=== PATIENT | male | born 1955 | race Caucasian/White ===

== ENCOUNTER 2019-09-24 09:43 | Inpatient (IN) | payer OTHER ==
[~2019-09-24] VITALS: Ht 185.4 cm; Wt 150.6 kg
[2019-09-24 09:49] VITALS: BP 121/79
[2019-09-24] MEDS ORDERED: TOPROL XL25 MG PO (09:50)
[2019-09-24] MEDS ORDERED: CIALIS2.5 MG PO (09:51)
[2019-09-24 10:16] LABS: BASO # 0.1 10*3/uL (0.0-0.1); BASO % 0.6 % (0.0-1.0); EOS # 0.4 10*3/uL (0.0-0.4); EOS % 4.6 % (1.0-4.0); HEMATOCRIT 51.3 % (42.0-52.0); HEMOGLOBIN 16.9 g/dl (14.0-18.0); LYMPH # 1.8 10*3/uL (1.3-4.4); LYMPH % 21.2 % (27.0-41.0); MEAN CELL VOLUME 95.4 fl (80.0-94.0); MEAN CORPUSCULAR HGB 31.4 pg (27.0-31.0); MEAN CORPUSCULAR HGB CONC 32.9 g/dl (33.0-37.0); MEAN PLATELET VOLUME 9.2 fl (9.6-12.3); MONO # 0.8 10*3/uL (0.1-1.0); MONO % 9.3 % (3.0-9.0); NEUT # 5.3 10*3/uL (2.3-7.9); NEUT % 64.1 % (47.0-73.0); PLATELET COUNT AUTOMATED 284 10*3/uL (130-400); RED BLOOD COUNT 5.38 10*6/uL (4.50-5.90); RED CELL DISTRI WIDTH 12.4 % (0-14.5); WHITE BLOOD COUNT 8.3 10*3/uL (4.8-10.8)
[2019-09-24 10:26] LABS: ACT PARTIAL THROMBO TIME 28.3 SECONDS (20.0-32.1); INTERNATIONAL NORM RATIO 0.9 (2.0-3.5)
[2019-09-24 10:35] LABS: ALBUMIN 4.1 gm/dl (3.1-4.5); ALKALINE PHOSPHATASE 70 U/L (45-117); BUN 15 mg/dl (7-24); CHLORIDE 106 mmol/L (98-107); CREATININE 1.07 mg/dL (0.70-1.30); POTASSIUM 3.8 mmol/L (3.5-5.1); SGOT/AST 23 IU/L (3-35); SGPT/ALT 34 U/L (12-78); SODIUM 139 mmol/L (136-145); TOTAL PROTEIN 8.1 gm/dL (6.4-8.2)
[2019-09-24 10:40] LABS: TROPONIN I < 0.015 ng/ml (<0.045)
[2019-09-24 10:41] VITALS: BP 143/67
--- NOTE | 2019-09-24 10:41 | NUR ---
FIVE BEAT RUN OF VTACH CAUGHT ON BEDSIDE MONITOR, PRINTED TO CHART.
--- NOTE | 2019-09-24 11:42 | NUR ---
Discharge instructions reviewed with patient/family. Patient receptive and verbalizes understanding. Follow-up care arranged. Written instructions given to patient/family. Patient was wheeled from unit by staff member with all personal belongings accounted for. Patient was educated on new prescriptions and follow up visits with Dr. Camacho and Dr. Cintron. KENYATTA LANCE
--- NOTE | 2019-09-24 11:50 | NUR ---
A 64, admitted to , under the services of CHELSEA Souza DO with a diagnosis of Chest Pain with Moderate Coronary Risk. Chief complaint is Chest Pain. Patient arrived via stretcher from ER. Monitor applied. Initial assessment completed. Vital signs taken and recorded. CHELSEA SOUZA DO notified of admission to the unit. Orders received. See assessment for past medical history, medications and allergies. Patient and/or family oriented to unit. [address] visitation policy reviewed. Clothing/patient valuable form completed. KENYATTA LANCE
[2019-09-24 12:00] VITALS: BP 165/68
--- NOTE | 2019-09-24 13:42 | NUR ---
Message left with [facility] regarding consult for chest pain moderate coronary risk.
[2019-09-24 16:00] VITALS: BP 134/51
[2019-09-24 20:00] VITALS: BP 137/73
--- NOTE | 2019-09-24 20:30 | NUR ---
RESTING IN BED WITH NO DISTRESS NOTED. RESPIRATIONS EASY. LUNGS DIMINISHED, CLEAR. PULSE OX 98% RA. CALL LIGHT WITHIN REACH. NO VOICED COMPLAINTS
--- NOTE | 2019-09-24 21:54 | NUR ---
24 HR chart check completed.
--- NOTE | 2019-09-24 22:30 | NUR ---
SLEEPING. NO DISTRESS NOTED. RESPIRATIONS EASY. C-PAP IN USE. CALL LIGHT WITHIN REACH
[2019-09-25] VITALS: BP 133/65
--- NOTE | 2019-09-25 00:30 | NUR ---
SLEEPING. RESPIRATIONS EASY. PULSE OX 98% C-PAP. CALL LIGHT WITHIN REACH.
--- NOTE | 2019-09-25 06:00 | NUR ---
SLEPT THROUGHOUT NIGHT WITH NO DISTRESS NOTED. RESPIRATIONS EASY. NPO FOR STRESS TEST THIS AM. CALL LIGHT WITHIN REACH. NO VOICED COMPLAINTS THIS SHIFT
[2019-09-25 06:20] LABS: BASO % 0.5 % (0.0-1.0); EOS # 0.4 10*3/uL (0.0-0.4); EOS % 4.6 % (1.0-4.0); HEMATOCRIT 51.9 % (42.0-52.0); HEMOGLOBIN 16.6 g/dl (14.0-18.0); LYMPH # 2.1 10*3/uL (1.3-4.4); MEAN CELL VOLUME 96.5 fl (80.0-94.0); MEAN CORPUSCULAR HGB 30.9 pg (27.0-31.0); MEAN PLATELET VOLUME 9.4 fl (9.6-12.3); MONO # 0.9 10*3/uL (0.1-1.0); MONO % 10.3 % (3.0-9.0); NEUT # 5.2 10*3/uL (2.3-7.9); NEUT % 60.2 % (47.0-73.0); PLATELET COUNT AUTOMATED 274 10*3/uL (130-400); RED BLOOD COUNT 5.38 10*6/uL (4.50-5.90); RED CELL DISTRI WIDTH 12.4 % (0-14.5); WHITE BLOOD COUNT 8.6 10*3/uL (4.8-10.8)
[2019-09-25 06:56] LABS: ALBUMIN 3.6 gm/dl (3.1-4.5); BUN 12 mg/dl (7-24); CHLORIDE 107 mmol/L (98-107); CHOLESTEROL 224 mg/dL (<200); CREATININE 0.98 mg/dL (0.70-1.30); PHOSPHOROUS 2.8 mg/dL (2.5-4.9); POTASSIUM 4.3 mmol/L (3.5-5.1); SGOT/AST 19 IU/L (3-35); SGPT/ALT 33 U/L (12-78); SODIUM 141 mmol/L (136-145); TRIGLYCERIDES 160 mg/dl (<150); VLDL CHOLESTEROL 32 mg/dL (6-40)
[2019-09-25 07:04] LABS: ALKALINE PHOSPHATASE 65 U/L (45-117); FREE T4 0.95 ng/dl (0.76-1.46); HDL CHOLESTEROL 45 mg/dl (40-60); LDL CHOLESTEROL 147 mg/dL (9-159); TOTAL PROTEIN 7.8 gm/dL (6.4-8.2)
--- NOTE | 2019-09-25 07:05 | NUR ---
ARRIVED ON SHIFT, INTRODUCED TO PATIENT, NO NEEDS VOICED, WHITE BOARD UPDATED.
[2019-09-25 07:42] LABS: VITAMIN D, 25-HYDROXY 35.8 ng/mL (30-100)
[2019-09-25 08:00] VITALS: BP 125/70
--- NOTE | 2019-09-25 08:20 | NUR ---
Shift chart check completed.
--- NOTE | 2019-09-25 10:45 | NUR ---
INFORMED CONSENT OBTAINED FOR LEXISCAN NUCLEAR STRESS TESTING WITH DR. MÉNDEZ. RESTING EKG NSR WITH A RESTING HR OF 85 WITH BP OF 124/72. LUNGS CLEAR WITH SPO2 OF 95% ON ROOM AIR. PT COMPLETED A 1:00 LEXISCAN 0.4 MG IV OVER 10 SECONDS. HAD NO CHEST PAIN OR ANY EKG CHANGES. HAD A PEAK HR OF 116 WITH BP OF 128/70. LAST RECOVERY HR OF 106 WITH BP OF 144/58. AWAITING SCANNING IN STABLE CONDITION.
--- NOTE | 2019-09-25 11:16 | NUR ---
PT OUT OF ROOM FOR STRESS TEST. WILL CONTINUE TO FOLLOW.
--- NOTE | 2019-09-25 13:31 | NUR ---
Head Of [employer] in to talk to patient. Patient states lives at HOME with ALONE. There are NO steps in the home. Physician: IN Pharmacy: IN Home health services: NONE Patient's level of ADLs: INDEPENDENT Patient has working utilities: YES DME: C PAP Follow-up physician's appointment after d/c: WILL BE MADE BY HOSPITALIST NURSE DIRECTOR ON DISCHARGE Does patient want to access PORTAL?: NO Discharge plan PT LIVES ALONE AT HOME AND IS INDEPENDENT IN CARE. STATES HIS PLAN IS TO RETURN HOME ON DISCHARGE WTIH NO NEEDS. STATES HE WILL HAVE A RIDE HOME. WILL CONTINUE TO FOLLOW.. SHARRI THOMAS
--- NOTE | 2019-09-25 14:27 | NUR ---
Discharge instructions reviewed with patient/family. Patient receptive and verbalizes understanding. Follow-up care arranged. Written instructions given to patient/family. IV REMOVED. TELEMETRY REMOVED AND ACCUNTED FOR, REFUSED W/C FOR D[place]ARGE. GASPER HERRERA
== END 2019-09-25 15:07 | disposition home or self-care (01) | DRG 206 ==
LOC: ED 09:43 → EDHOLD 11:14 → 4E 11:14
PROVIDERS: Emergency Medicine; Internal Medicine; ADMIT Family Medicine
DX: M94.0 Chondrocostal junction syndrome [Tietze] (principal); Z68.41 Body mass index [BMI] 40.0-44.9, adult; E66.01 Morbid (severe) obesity due to excess calories; M54.6 Pain in thoracic spine; I10 Essential (primary) hypertension; E78.2 Mixed hyperlipidemia; E83.41 Hypermagnesemia; R73.9 Hyperglycemia, unspecified; Z96.659 Presence of unspecified artificial knee joint; G47.33 Obstructive sleep apnea (adult) (pediatric); Z79.899 Other long term (current) drug therapy; Z80.9 Family history of malignant neoplasm, unspecified